=== PATIENT | male | born 1990 | race African-American/Black ===

== ENCOUNTER 2025-03-31 17:35 | Emergency (ER) | payer SELFPAY ==
[2025-03-31 18:26] VITALS: BP 146/99; PULSE 99; RESP 20; TEMP 36.9; O2SAT 100
--- NOTE | 2025-03-31 20:07 | PC.NURSE ---
Pt family member approached triage desk asking about wait times. Pt informed that we are not allowed to give out wait times. Pt family member then stated she has to be at work at 11 so they are going to leave. Pt advised to be seen at the nearest ED if symptoms warrant a return. Pt verbalize understanding and ambulated to ED with steady gait and no signs for concern at this time.
== END 2025-03-31 20:07 | disposition left against medical advice (07) ==
DX: Z04.1 Encounter for examination and observation following transport accident (principal)
CPT/HCPCS: 99199